=== PATIENT | female | born 1990 | race Caucasian/White ===

== ENCOUNTER 2020-12-30 01:08 | Day surgery (SDC) | payer OTHER, SELFPAY ==
[2020-12-25 15:38] VITALS: BMI 24.2
[2020-12-30] VITALS (9 sets, daily range): BP systolic 116–139; BP diastolic 54–90; PULSE 77–99; RESP 9–17; TEMP 35.6–36.6; O2SAT 100
[2020-12-30] MEDS: LACTATED RINGERS 1,000 ML 30 ML IV CONT ×2 (06:15→11:45)
[2020-12-30 06:41] LABS: Urine Cotinine NEGATIVE
--- NOTE | 2020-12-30 07:24 | P.OP_ITS ---
Procedure Note - Detailed Date of Procedure 12/30/20 Pre-op Diagnosis unacceptable cosmetic appearance Post-op Diagnosis same Procedure Performed [place] Butt Lift (Suction lipectomy with gluteal fat grafting) Surgeon Arcadio Holbrook MD Anesthesia general Findings Suction lipectomy completed Abdomen, flanks, back - lipoaspirate 2800 cc. Gluteal augmentation volume 700 cc per side (1400 cc total volume). Description of Procedure Preoperatively the risks, benefits, alternatives were discussed in extensive detail. I want her to be very realistic about the risks involved as well as expectations. I was very up front honest about the limitations of the pro cedure, realistic expectations, and the risks. I want her to be very clear despite all best efforts there is still a risk of with this procedure. This was outlined extensively due to the severe nature. I want her to be clear. There is no lack of understanding of this risk as well as the literature rates. All questions were answered to her satisfaction today. Consent obtained. She was marked in the preoperative holding area with her verification. We discussed her goals during this portion as well as reviewed photos. Explained I can never achieve the goals that she is looking for as that is not her unique anatomy. She was taken to the operating room. Anesthesia provided by anesthesiology. Unger catheter started. Prepped and draped in a standard sterile fashion. This was a 360 degree prep. Stab incisions were made and used a tumescent solution. Once adequate time for hemostasis was completed using combination of 4 mm and 5 mm basket cannulas and modification S.A.F.E. technique I completed suction lipectomy of the areas described as above. During the procedure we did turn her from side to side in order to complete the goals as well as verify the appearance. Fat grafting was completed as we went and injected into the lateral thigh depression using a 5mm basket. Finally we placed prone and completed the suction lipectomy the back. I then injected adipose tissue staying superficial in the gluteal region based on her preoperative planning multiple planes and passes. Dressings were placed. She was woken taken the PACU without difficulty. All instrument sponge counts were correct at the end of the case. Estimated Blood Loss 30 Drains No Packing No Pathology none sent Complications No immediate complications Condition stable Disposition PACU
--- NOTE | 2020-12-30 07:24 | WPDHPUPDATE1 ---
History and Physical Update Update Date/Time: 12/30/20 07:24 History and Physical has been reviewed, including an updated exam of the patient. There are NO changes in the patient's condition. Risks, benefits, and alternatives have been discussed and questions answered. Patient agrees to proceed with procedure.
[2020-12-30] MEDS: TRANEXAMIC ACID 1,000MG/ISO100 1,000 MG/100 ML BAG 200 MG IVPB (07:32)
[2020-12-30] MEDS: ceFAZolin 2 GM/D5W 50 ML 2 GM/50 ML BAG IVPB (07:32)
[2020-12-30] MEDS: LACTATED RINGERS IRRIG 1,000 ML, LIDOCAINE HCL 1% LOCAL INJ 50 ML, EPINEPHrine HCL INJ ... INFILTRATE (08:35)
[2020-12-30] MEDS: ceFAZolin SODIUM 1 GM VIAL IV PUSH (11:18)
[2020-12-30] MEDS: fentaNYL CITRATE INJ (*CRX) 100 MCG/2 ML VIAL 25 MCG IV PUSH ×2 (12:14→12:27)
--- NOTE | 2020-12-30 12:17 | SUR.PHASEI ---
1145 PATIENT POSITIONED ON ABDOMEN PER SURGEON'S ORDER. 1215 PATIENT REMAINS ON ABDOMEN. PATIENT UNDERSTANDS TO REMAIN ON ABDOMEN.
[2020-12-30] MEDS: oxyCODONE HCL (*CRX) 5 MG TAB IR PO (13:09)
== END 2020-12-30 13:56 | disposition home or self-care (01) ==
PROVIDERS: Visit Provider Surgery Plastic and Reconstructive Surgery
PROC: (CPT 15832; principal; 2020-12-30 07:30)
DX: Z41.1 Encounter for cosmetic surgery (principal)
CPT/HCPCS: 15879; 15877; 17999; 80307; A9270; J0171; J0330; J0690; J1100; J2175; J2250; J2270; J2405; J2704; J3010; J7120